=== PATIENT | male | born 2000 | race Caucasian/White ===

== ENCOUNTER 2024-02-15 19:55 | Emergency (ER) | payer SELFPAY ==
[2024-02-15 20:02] VITALS: BP 134/86; PULSE 62; TEMP 36.8; O2SAT 97; BMI 29.6
--- NOTE | 2024-02-15 20:13 | ED_ITS ---
HPI HPI - General Adult General Chief complaint: Abdominal Pain Stated complaint: vomiting Time Seen by Provider: 02/15/24 20:03 Source: patient Mode of arrival: walk-in Limitations: no limitations History of Present Illness HPI narrative: This 23-year-old male presents for evaluation of nausea and vomiting starting at 10 AM. The patient states he last ate [employer]. He woke up this morning and felt that he had to have a bowel movement. While on the toilet he started having abdominal cramps and has been having nausea and vomiting since that time. He has not had any diarrhea. He states he cannot keep anything down. He has not had a fever. He states he has had similar symptoms in the past. He does eat [employer] routinely. He has no sick contacts. He denies any travel outside the country but did recently travel to [place] for work. He has no specific abdominal pain but is having cramps. Related Data Allergies Allergy/AdvReac Type Severity Reaction Status Date / Time No Known Drug Allergies Allergy Verified 02/15/24 20:07 Opioid HPI Opioid Management Most Recent Opioid Data: Last Pain Scale 0 02/15/24 22:57 02/15/24 Last ED Pain Assessment 02/15/24 22:57 Review of Systems ROS Status of ROS 10 or more systems reviewed and unremark able except as noted in history and below Exam Narrative Exam Narrative: Vital signs and Nursing Notes reviewed: Patient is afebrile with a normal pulse, normal blood pressure, he is not hypoxic with pulse ox of 97% on room air General: Awake, alert, oriented, nontoxic overweight male, no active vomiting, no respiratory distress HEENT: Normocephalic atraumatic, mucous membranes are slightly dry, no scleral icterus Neck: Supple, no meningeal signs, no anterior or posterior cervical lymphadenopathy Chest: Lungs are clear to auscultation with good air entry, there is no wheezing rhonchi or rales appreciated no accessory muscle use, patient is speaking in complete sentences-no chest wall tenderness to palpation CVS: Regular rate and rhythm S1-S2, no murmurs rubs or gallops, pulses are brisk and equal bilaterally ABD: Soft, nondistended, nontender, no rebound guarding or rigidity-specifically there is no tenderness in the right lower quadrant right upper quadrant or left upper quadrant., bowel sounds are normal, no pulsatile masses appreciated Extremities: Moving all extremities, no lower extremity tenderness or swelling noted, negative Homans' sign, pulses are brisk and equal bilaterally Skin: Normal in appearance without rash,pallor, petechiae or purpura Neuro: No focal deficits Constitutional Vital Signs, click to edit/add: Last Vital Signs Temp 98.5 F 02/15/24 22:03 Pulse 58 L 02/15/24 22:03 Resp 17 02/15/24 22:03 BP 115/85 02/15/24 22:03 Pulse Ox 97 02/15/24 22:03 Course Vital Signs Vital signs: Vital Signs Temperature 98.2 F 02/15/24 20:02 Pulse Rate 62 02/15/24 20:02 Respiratory Rate 18 02/15/24 20:02 Blood Pressure 134/86 02/15/24 20:02 Pulse Oximetry 97 02/15/24 20:02 Temperature 98.5 F 02/15/24 22:03 Pulse Rate 58 L 02/15/24 22:03 Respiratory Rate 17 02/15/24 22:03 Blood Pressure 115/85 02/15/24 22:03 Pulse Oximetry 97 02/15/24 22:03 Medical Decision Making [facility] Narrative Medical decision making narrative: This otherwise healthy 23-year-old male presents for evaluation of abdominal cramps with nausea vomiting starting around 10 AM after getting up this morning. He states he could not keep anything down. He last ate at [facility] patient states he has had similar symptoms in the past. Upon arrival he was awake alert. His abdomen was soft. Mucous membranes are moist. Vital signs were stable. He could not quantify how many times he had vomited but states it was all day. He had not had any diarrhea. He has not had a fever. He has no upper respiratory symptoms. An IV was placed and he was medicated with IV fluids, Zofran and Pepcid and Toradol. On reevaluation he was feeling better and was tolerating ice chips and then ice water. Routine labs are ordered. He has an elevated white count at 16.1 which is likely related to his vomiting. Electrolytes are otherwise normal. Liver function tests are normal the exception of a mildly elevated alk phos at 142. X-ray of the chest and abdomen shows a 6 mm calcification on the right but otherwise nonspecific bowel gas pattern. The patient stated that after his x-ray his GI discomfort started coming back. I ordered IM Bentyl for him which she refused but he did tolerate oral Bentyl. On reevaluation his symptoms have resolved. He will be discharged home with prescription for Bentyl, Zofran and Pepcid Medical Records Medical records narrative: The [address] [address] XRay Report Signed Patient: VICKI GERARD MR#: [id number] : 2000 Acct:[id number] Age/Sex: 23 / M ADM Date: 02/15/24 Loc: ER Attending Dr: Ordering Physician: Medardo Miranda Date of Service: 02/15/24 Procedure(s): XR acute abdomen series Accession Number(s): [id number] cc: Medardo Miranda; Physician,Non-Staff M.D.~ The [address] [address] Patient Name: VICKI GERARD MRN: [id number] date: 2000 Sex: M Assigned Patient Location: ER Current Patient Location: ER Accession/Order Number: [id number] Exam Date: 02/15/2024 21:50 Report Date: 02/15/2024 22:28 At the request of: MEDARDO MARKER Procedure: XR acute abdomen series EXAM: XR acute abdomen series TECHNIQUE: Frontal view chest. Supine and upright views of the abdomen HISTORY: abd pain, N/V COMPARISON: None. FINDINGS: Heart and mediastinum are unremarkable. Lung jimenez are clear. No evidence for bowel obstruction. No evidence for free intraperitoneal air. 6 mm calcification overlying the lower pole right kidney. No acute osseous abnormality. XR/XR acute abdomen series IMPRESSION: No acute abdominal pathology. Electronically authenticated by: CHLOE GRANT Date: 02/15/2024 22:28 Lab Data Labs: Lab Results 02/15/24 Range/Units 20:30 WBC 16.1 H (4.0-11.0) 10^3/uL RBC 5.61 (4.70-6.10) 10^6/uL Hgb 17.0 (14.0-18.0) g/dL Hct 49.7 (42.0-54.0) % MCV 88.6 (80.0-94.0) fL MCH 30.3 (25.9-34.0) pg MCHC 34.2 (29.9-35.2) g/dL RDW 12.1 (11.0-15.0) % Plt Count 280 (150-450) 10^3/uL MPV 10.1 (9.5-13.5) fL Neut % (Auto) 93.5 H (43.0-75.0) % Lymph % (Auto) 4.4 L (20.5-60.0) % [place] % (Auto) 1.8 (1.7-12.0) % Eos % (Auto) 0.0 L (0.9-7.0) % Baso % (Auto) 0.1 L (0.2-2.0) % Neut # (Auto) 15.0 H (1.4-6.5) 10^3/uL Lymph # (Auto) 0.7 L (1.2-3.8) 10^3/uL [place] # (Auto) 0.3 (0.3-0.8) 10^3/uL Eos # (Auto) 0.0 (0.0-0.7) 10^3/uL Baso # (Auto) 0.0 (0.0-0.1) 10^3/uL Abs Immat Gran (auto) 0.04 H (0.00-0.03) 10^3/uL Imm/Tot Granulo (auto) 0.2 (0.0-0.5) % Sodium 141 (136-145) mmol/L Potassium 4.1 (3.5-5.1) mmol/L Chloride 106 (98-107) mmol/L Carbon Dioxide 26.7 (21.0-32.0) mmol/L Anion Gap 12.4 BUN 12.0 (7.0-18.0) mg/dL Creatinine 1.05 (0.70-1.30) mg/dL Est GFR ( Amer) >60 (>=60 mL/min/1.73m^2) Est GFR (Non-Af Amer) >60 (>=60 mL/min/1.73m^2) BUN/Creatinine Ratio 11.4 Glucose 129 H (74-106) mg/dL Calcium 9.9 (8.5-10.1) mg/dL Total Bilirubin 0.5 (0.2-1.0) mg/dL AST 22 (15-37) U/L ALT 34 (16-63) U/L Alkaline Phosphatase 142 H (46-116) U/L Total Protein 8.7 H (6.4-8.2) g/dL Albumin 4.5 (3.4-5.0) g/dL Globulin 4.2 g/dL Albumin/Globulin Ratio 1.1 Lipase 23.0 (16.0-77.0) U/L Discharge Plan Discharge Chief Complaint: Abdominal Pain Clinical Impression: Gastroenteritis Patient Disposition: Home, Self-Care Time of Disposition Decision: 23:14 Condition: Good Print Language: Sinhala Instructions: Gastroenteritis (ED), Acute Nausea and Vomiting (ED) Referrals: Physician,Non-Staff, MD [Primary Care Provider] - 1 week
--- NOTE | 2024-02-15 20:35 | PC.NURSE ---
complains of abdomen pain and nausea and vomiting onset early today
[2024-02-15 20:40] LABS: Basophils Percent Auto 0.1 % (0.2-2.0); Hematocrit 49.7 % (42.0-54.0); Immature Granulocytes Abs Auto 0.04 10^3/uL (0.00-0.03); Immature Granulocytes Pct Auto 0.2 % (0.0-0.5); Lymphocytes Absolute Auto 0.7 10^3/uL (1.2-3.8); Lymphocytes Percent Auto 4.4 % (20.5-60.0); Mean Corpuscular HGB Conc 34.2 g/dL (29.9-35.2); Mean Corpuscular Hemoglobin 30.3 pg (25.9-34.0); Mean Corpuscular Volume 88.6 fL (80.0-94.0); Mean Platelet Volume 10.1 fL (9.5-13.5); Monocytes Absolute Auto 0.3 10^3/uL (0.3-0.8); Monocytes Percent Auto 1.8 % (1.7-12.0); Neutrophils Percent Auto 93.5 % (43.0-75.0); Platelet Count 280 10^3/uL (150-450); Red Blood Count 5.61 10^6/uL (4.70-6.10); Red Cell Distribution Width 12.1 % (11.0-15.0); White Blood Count 16.1 10^3/uL (4.0-11.0)
[2024-02-15] MEDS: KETOROLAC TROMETHAMINE 30 MG/ML VIAL IVP (20:52)
[2024-02-15] MEDS: ONDANSETRON PF 4 MG/2 ML VIAL IV (20:52)
[2024-02-15] MEDS: FAMOTIDINE/PF 20 MG/2 ML VIAL IV (20:52)
[2024-02-15] MEDS: 0.9 % SODIUM CHLORIDE 1,000 ML 1000 ML IV (20:52)
[2024-02-15 20:57] LABS: Alanine Aminotransferase 34 U/L (16-63); Albumin Globulin Ratio 1.1; Albumin Level 4.5 g/dL (3.4-5.0); Alkaline Phosphatase 142 U/L (46-116); Anion Gap 12.4; Aspartate Amino Transferase 22 U/L (15-37); BUN Creatinine Ratio 11.4; Bilirubin Total 0.5 mg/dL (0.2-1.0); Calcium 9.9 mg/dL (8.5-10.1); Carbon Dioxide 26.7 mmol/L (21.0-32.0); Chloride 106 mmol/L (98-107); Estimated GFR (African America >60 (>=60 mL/min/1.73m^2); Estimated GFR (Non-African Ame >60 (>=60 mL/min/1.73m^2); Globulin 4.2 g/dL; Glucose 129 mg/dL (74-106); Potassium 4.1 mmol/L (3.5-5.1); Sodium 141 mmol/L (136-145); Total Protein 8.7 g/dL (6.4-8.2)
--- NOTE | 2024-02-15 21:23 | XR_ITS ---
The [address] [address] Patient Name: VICKI GERARD MRN: [id number] date: 2000 Sex: M Assigned Patient Location: ER Current Patient Location: ER Accession/Order Number: [id number] Exam Date: 02/15/2024 21:50 Report Date: 02/15/2024 22:28 At the request of: MEDARDO MARKER Procedure: XR acute abdomen series EXAM: XR acute abdomen series TECHNIQUE: Frontal view chest. Supine and upright views of the abdomen HISTORY: abd pain, N/V COMPARISON: None. FINDINGS: Heart and mediastinum are unremarkable. Lung jimenez are clear. No evidence for bowel obstruction. No evidence for free intraperitoneal air. 6 mm calcification overlying the lower pole right kidney. No acute osseous abnormality. XR/XR acute abdomen series IMPRESSION: No acute abdominal pathology. Electronically authenticated by: CHLOE GRANT Date: 02/15/2024 22:28
--- NOTE | 2024-02-15 21:32 | PC.NURSE ---
this patient voices his abdomen pain is at 2//10 and nausea is better. i informed this patient about the new order placed by Dr Miranda for abdomen x-rays, this patient voices no other complaints and shows no signs of distress
[2024-02-15 22:03] VITALS: BP 115/85; PULSE 58; TEMP 36.9; O2SAT 97
--- NOTE | 2024-02-15 22:04 | PC.NURSE ---
patient is back from x-ray dept and Dr Miranda in room with patient and gave this patient some water to drink and to see if he can keep water down
[2024-02-15] MEDS: DICYCLOMINE HCL 10 MG CAPSULE 20 MG PO (22:20)
--- NOTE | 2024-02-15 22:26 | PC.NURSE ---
i updated this patient about a urine order placed, i gave this patient a urinal and told once he provides a urine sample to push the call light so i can collected and send this urine sample to lab dept
[2024-02-15 23:17] VITALS: BP 143/85; PULSE 59; TEMP 37.2; O2SAT 100
--- NOTE | 2024-02-15 23:25 | PC.NURSE ---
this patient is afraid that his abdomen pain will come back after he is discharged. I informed this to Dr Miranda
--- NOTE | 2024-02-15 23:55 | PC.NURSE ---
i walked into this patient's room to find patient dressed and sitting at the edge of the bed. I have Zofran would like it? patient replied no, and I just gave you guys a review I said to this patient I have your discharge papers with some prescribes. this patient said I don't want them and I am just going to [facility]. this patient walked out of room 11 and then out of the ER dept. during this process this patient's gait steady and shows no signs of distress
== END 2024-02-16 | disposition home or self-care (01) ==
PROVIDERS: Emergency Provider Emergency Medicine
DX: K52.9 Noninfective gastroenteritis and colitis, unspecified (principal)
CPT/HCPCS: 36415; 74022; 80053; 81001; 83690; 85025; 96361; 96374; 96375; 99285; J1885; J2405